=== PATIENT | female | born 1965 | race Caucasian/White ===

== ENCOUNTER 2019-11-06 12:57 | Outpatient (CLI) | payer BC, SELFPAY ==
--- NOTE | ~2019-11-06 | MM_ITS ---
EXAMINATION: MM screening kadie BI w stephanie HISTORY: Screening TECHNIQUE: Craniocaudal and mediolateral oblique 3-D tomosynthesis images were obtained and synthetic 2-D images were generated. CAD analysis was submitted and interpreted. COMPARISON: Comparison to multiple prior studies sequentially, with oldest reviewed study dated 03/17. BREAST PARENCHYMAL COMPOSITION: There are scattered areas of fibroglandular density. FINDINGS: There is no evidence of suspicious mass, calcification, or architectural distortion to sugg est malignancy in either breast. There has been no suspicious interval change. IMPRESSION: 1. No mammographic evidence of malignancy. 2. Recommend routine screening mammography in one year. BI-RADS Category 1: Negative Reviewed, dictated and finalized at location A.
== END 2019-11-06 12:58 | disposition home or self-care (01) ==
LOC: CHSIMG 13:02
PROVIDERS: PCP Family Medicine; Visit Provider Obstetrics & Gynecology
DX: Z12.31 Encounter for screening mammogram for malignant neoplasm of breast (principal)
CPT/HCPCS: 77063; 77067

== ENCOUNTER 2020-11-09 14:44 | Outpatient (CLI) | payer OTHER, SELFPAY ==
--- NOTE | ~2020-11-09 | MM_ITS ---
EXAMINATION: MM screening kadie BI w stephanie HISTORY: Screening mammogram TECHNIQUE: Craniocaudal and mediolateral oblique 3-D tomosynthesis images were obtained and synthetic 2-D images were generated. CAD analysis was submitted and interpreted. COMPARISON: 11/02/2019, 10/09/2018, 10/08/2017 bilateral digital screening mammogram examinations BREAST PARENCHYMAL COMPOSITION: There are scattered areas of fibroglandular density. FINDINGS: There is no evidence of suspicious mass, calcification, or architectural distortion to sugg est malignancy in either breast. There has been no suspicious interval change. IMPRESSION: 1. No mammographic evidence of malignancy. 2. Recommend routine screening mammography in one year. BI-RADS Category 1: Negative Reviewed, dictated and finalized at location A.
== END 2020-11-09 14:45 | disposition home or self-care (01) ==
LOC: CHSIMG 14:47
PROVIDERS: PCP Family Medicine; Visit Provider Obstetrics & Gynecology
DX: Z12.31 Encounter for screening mammogram for malignant neoplasm of breast (principal)
CPT/HCPCS: 77063; 77067

== ENCOUNTER 2021-12-22 14:23 | Outpatient (CLI) | payer OTHER, SELFPAY ==
--- NOTE | ~2021-12-22 | MM_ITS ---
EXAMINATION: MM screening kadie BI w stephanie HISTORY: Screening mammogram TECHNIQUE: Craniocaudal and mediolateral oblique 3-D tomosynthesis images were obtained and synthetic 2-D images were generated. CAD analysis was submitted and interpreted. COMPARISON: 11/09/2020, 11/02/2019, 10/09/2018 lateral screening mammogram examinations BREAST PARENCHYMAL COMPOSITION: There are scattered areas of fibroglandular density. FINDINGS: There is no evidence of suspicious mass, calcification, or architectural distortion to sugg est malignancy in either breast. There has been no suspicious interval change. IMPRESSION: 1. No mammographic evidence of malignancy. 2. Recommend routine screening mammography in one year. BI-RADS Category 1: Negative Reviewed, dictated and finalized at location A.
== END 2021-12-22 14:24 | disposition home or self-care (01) ==
LOC: CHSIMG 14:24
PROVIDERS: Visit Provider Obstetrics & Gynecology
DX: Z12.31 Encounter for screening mammogram for malignant neoplasm of breast (principal)
CPT/HCPCS: 77063; 77067

== ENCOUNTER 2022-12-28 14:05 | Outpatient (CLI) | payer OTHER, SELFPAY ==
--- NOTE | ~2022-12-28 | MM_ITS ---
EXAMINATION: MM screening kadie BI w stephanie HISTORY: Screening mammogram TECHNIQUE: Craniocaudal and mediolateral oblique 3-D tomosynthesis images were obtained and synthetic 2-D images were generated. CAD analysis was submitted and interpreted. COMPARISON: 12/22/2021, 11/09/2020, 11/02/2019 bilateral screening mammogram examinations BREAST PARENCHYMAL COMPOSITION: There are scattered areas of fibroglandular density. FINDINGS: There is no evidence of suspicious mass, calcification, or architectural distortion to sugg est malignancy in either breast. There has been no suspicious interval change. IMPRESSION: 1. No mammographic evidence of malignancy. 2. Recommend routine screening mammography in one year. BI-RADS Category 1: Negative Reviewed, dictated and finalized at location A.
== END 2022-12-28 14:06 | disposition home or self-care (01) ==
PROVIDERS: PCP Obstetrics & Gynecology; Visit Provider Obstetrics & Gynecology
DX: Z12.31 Encounter for screening mammogram for malignant neoplasm of breast (principal)
CPT/HCPCS: 77063; 77067

== ENCOUNTER 2023-04-24 12:53 | Emergency (ER) | payer OTHER, SELFPAY ==
[2023-04-24 13:02] VITALS: BP 115/56; PULSE 83; RESP 16; TEMP 36.5; O2SAT 100
--- NOTE | 2023-04-24 13:09 | ED.SKABFB ---
HPI - Skin/Abscess/Foreign Bdy General Chief complaint: Skin/Abscess/Foreign Body Stated complaint: INFECTED FINGER Time Seen by Provider: 04/24/23 13:09 Source: patient Mode of arrival: ambulatory Limitations: no limitations History of Present Illness HPI narrative: 57-year-old female presents with paronychia to left ring finger. Patient reports that symptoms started 2 days ago. Afebrile. Denies biting nails. Patient states she did telehealth visit yesterday it was prescribe cephalexin. Patient states that provider mention that paronychia may be drained. Patient has not started antibiotic, wanted to make sure she did not need any other treatment prior to starting. Range of motion and distal neurovascularly intact. All systems reviewed and negative except as noted above. Related Data Allergies Allergy/AdvReac Type Severity Reaction Status Date / Time grass pollen Allergy Unknown reaction Verified 04/24/23 13:09 mold Allergy Unknown reaction Verified 04/24/23 13:09 poison roz extract Allergy Unknown Skin Verified 04/24/23 13:09 Reaction pollen extracts Allergy Unknown reaction Verified 04/24/23 13:09 Honey Bee Allergy Intermediate SWELLING Uncoded 04/24/23 13:09 AT SITE SUN Allergy Unknown Unknown Uncoded 04/24/23 13:09 Review of Systems Review of Systems: CONSTITUTIONAL: Denies fever, chills, or sweats. EYES: Denies visual changes, redness, or discharge. ENT: Denies rhinorrhea, congestion, sore throat, or otalgia. CARDIOVASCULAR: Denies chest pain, palpitations, or edema. RESPIRATORY: Denies cough or dyspnea. GASTROINTESTINAL: Denies abdominal pain, nausea, vomiting, or diarrhea. GENITOURINARY: Denies dysuria or hematuria. SKIN: Denies rash or itching. Reports redness, swelling and tenderness to distal aspect of left ring finger. MUSCULOSKELETAL: Denies back pain, joint pain, or myalgia. NEUROLOGIC: Denies headache, numbness, or weakness. PSYCHIATRIC: Denies anxiety or depression. All other systems reviewed are negative, except as documented in HPI. [facility] Family History Family History (Updated 02/20/18 @ 14:26 by DOCTOR UNKNOWN) Grandparent Family history of malignant neoplasm of stomach Mother Family history of gynecological problem Family history of malignant neoplasm of breast in first degree relative Father Family history of malignant neoplasm Family history of lymphoma, Onset Age: 57 Other Family history of lung cancer Family history of malignant neoplasm of breast Malignant neoplasm of prostate Social History Social History Smoking status: Never smoker Alcohol intake: current Comments At time of signature, agree with nursing past medical, surgical, social and family history. There is no relevant family history pertinent to the presenting complaint. Exam Narrative: GENERAL: This is a well-nourished, well-developed patient, in no apparent distress. HEAD: normocephalic, atraumatic. EYES: PERRL. Sclera clear/white. Vision is grossly intact. EARS: External ears normal NOSE: External nose normal NECK: Neck supple, non-tender without lymphadenopathy, masses or thyromegaly. CARDIOVASCULAR: Regular rate and rhythm without murmurs, gallops, or rubs. RESPIRATORY: Clear to auscultation. Breath sounds equal bilaterally. No wheezes, rales, or rhonchi. SKIN: warm, Dry, intact with no suspicious lesions or rash, good texture and turgor. Erythema and swelling to lateral aspect of the left ring finger consistent with paronychia. NEURO: awake, alert, and oriented to person, place and time. There were no obvious focal neurologic abnormalities. EXTREMITIES: No joint tenderness, effusion, or edema noted. Course Course Level of Care: Express Care Visit Vital Signs Vital signs: Vital Signs Temperature 36.5 C 04/24/23 13:02 Pulse Rate 83 04/24/23 13:02 Respiratory Rate 16 04/24/23 13:02 Blood Pressure 115/56 L 04/24/23 13:02 Pulse Oximetry 100
--- NOTE | 2023-04-24 13:38 | PC.NURSE ---
I&D COMPLETED PER WAREHOUSE CONSULTANT, BANDAID APPLIED, SPECIMEN SENT TO LAB
== END 2023-04-24 13:30 | disposition home or self-care (01) ==
PROVIDERS: Emergency Provider Nurse Practitioner Family
DX: L03.012 Cellulitis of left finger (principal)
CPT/HCPCS: 10060; 87070; 87075; 87147; 87181; 87186; 87205; 99213; G0463

== ENCOUNTER 2023-11-22 01:02 | Day surgery (SDC) | payer OTHER, SELFPAY ==
[2023-11-08 10:08] VITALS: BMI 22.1
[2023-11-22 07:10] VITALS: BP 107/46; PULSE 79; RESP 16; TEMP 36.1; O2SAT 100
[2023-11-22] MEDS: LACTATED RINGERS 1,000 ML 150 ML IV CONT (07:21)
--- NOTE | 2023-11-22 08:04 | PM.HPGS ---
History of Present Illness History of Present Illness Consent: Risks, benefits, and alternatives have been discussed and questions answered. Patient agrees to proceed with procedure. Chief complaint: Personal Hx. of colon polyps Narrative: Hailey Sharma is a 58 year old female with adenoma colon polyp in 2016 Review of Systems Review of Systems: All systems reviewed & are unremarkable except as noted in HPI and below PMFSH Past Medical History Medical History (Updated 11/22/23 @ 08:04 by Hector Johnson MD) Adenomatous colon polyp Family History Family History Grandparent Family history of malignant neoplasm of stomach Mother Family history of gynecological problem Family history of malignant neoplasm of breast in first degree relative Father Family history of malignant neoplasm Family history of lymphoma, Onset Age: 57 Other Family history of lung cancer Family history of malignant neoplasm of breast Malignant neoplasm of prostate Social History Social History (Updated 07/31/23 @ 13:25 by Naomy Camejo CMA) Smoking status: Never smoker Alcohol intake: current Substance use: never Substance use type: does not use Do You Feel Safe in your Home?: Yes Lack of Transportation: YES Lack of Food: Never True Current Housing: I Have Housing Concerned About Future Housing: No Difficulty Paying Gas/Electric Bills: No Difficulty Paying for Meds: No Currently Unemployed: No Living arrangements: with family Gender identity (if verbalized by the patient): Female Spiritual care concerns: No Agree to blood products: Yes Meds Home Medications and Allergies Home Medications Medication Instructions Recorded Confirmed Type pfjehrsq-bqq-bysin ac 400 1 tablet PO DAILY 07/31/23 11/08/23 History mcg-calcium carb 500 mg-vit K1 20 mcg tablet (Women's 50 Plus Multivitamin) Calcium 600 + D(3) 1 tab-cap PO DAILY 11/08/23 11/08/23 History chlorpheniramine maleate 4 mg 4 mg PO DAILY 11/08/23 11/08/23 History tablet (Allergy (chlorpheniramine)) sodium,potassium,mag sulfates 17.5 See Rx Instructions .Route 11/08/23 Rx gram-3.13 gram-1.6 gram oral soln .COMPLEX #354 mL (Suprep Bowel Prep Kit) Allergies Allergy/AdvReac Type Severity Reaction Status Date / Time grass pollen Allergy Intermediate reaction Verified 11/22/23 07:09 mold Allergy Intermediate reaction Verified 11/22/23 07:09 poison roz extract Allergy Intermediate Skin Verified 11/22/23 07:09 Reaction pollen extracts Allergy Intermediate reaction Verified 11/22/23 07:09 bees Allergy Intermediate Swelling Uncoded 11/22/23 07:09 Honey Bee Allergy Intermediate SWELLING Uncoded 11/22/23 07:09 AT SITE SUN Allergy Intermediate Rash Uncoded 11/22/23 07:09 Vital Signs Vital Signs - 24 hr 11/22/23 07:10 Temperature 97 F L Pulse Rate 79 Respiratory Rate 16 Blood Pressure 107/46 L Pulse Oximetry 100 Oxygen Delivery Room Air Exam Const: General: comfortable and no acute distress HENMT: Face/Nose/Sinus: Normal nares present Eyes: General: appearance normal, both eyes and all related structures Neck: Neck: no JVD Resp: Auscultation: clear to auscultation bilaterally Cardio: Rate: regular rate Rhythm: regular rhythm GI: Inspection: non-distended GI Palp: Yes Soft to palpation Skin: General skin exam: normal color Neuro: General: gait normal Speech: normal speech Extrem: General: normal to inspection Psych: Mental Status: mental status grossly normal Assessment and Plan Assessment and plan (1) Adenomatous colon polyp: Code(s): D12.6 - Benign neoplasm of colon, unspecified Status: Acute Assessment and Plan: colonoscopy
[2023-11-22 08:17] VITALS: BP 80/36; PULSE 61; RESP 20; O2SAT 98
[2023-11-22 08:27] VITALS: BP 86/48; PULSE 65; RESP 18; O2SAT 100
[2023-11-22 08:31] VITALS: BP 82/47
[2023-11-22 08:34] VITALS: BP 101/57; PULSE 70; RESP 24; O2SAT 100
[2023-11-22 08:37] VITALS: BP 112/83; PULSE 73; RESP 18; O2SAT 100
--- NOTE | 2023-11-29 14:45 | WPDANESEPPF ---
Anes - Initial Pre Proc Eval Procedure: Operation Date: 11/22/23 08:30 Proposed Procedures p Colonoscopy - Hector Johnson MD Date/Time: 11/29/23 14:45 Surgeon: Hector Johnson MD Pre Op Diagnosis: Personal Hx. of colon polyps Patient Data Age: 58 Gender: F Height: 1.6 m Weight: 57.4 kg Last Vital Signs Temp 97 F L 11/22/23 07:10 Pulse 73 11/22/23 08:37 Resp 18 11/22/23 08:37 BP 112/83 11/22/23 08:37 Pulse Ox 100 11/22/23 08:37 O2 Del Method Room Air 11/22/23 08:37 Allergies Allergy/AdvReac Type Severity Reaction Status Date / Time grass pollen Allergy Intermediate reaction Verified 11/22/23 07:09 mold Allergy Intermediate reaction Verified 11/22/23 07:09 poison roz extract Allergy Intermediate Skin Verified 11/22/23 07:09 Reaction pollen extracts Allergy Intermediate reaction Verified 11/22/23 07:09 bees Allergy Intermediate Swelling Uncoded 11/22/23 07:09 Honey Bee Allergy Intermediate SWELLING Uncoded 11/22/23 07:09 AT SITE SUN Allergy Intermediate Rash Uncoded 11/22/23 07:09 Home Medications Medication Instructions Recorded Confirmed Type vndpgvls-nwp-kdbdi ac 400 1 tablet PO DAILY 07/31/23 11/08/23 History mcg-calcium carb 500 mg-vit K1 20 mcg tablet (Women's 50 Plus Multivitamin) Calcium 600 + D(3) 1 tab-cap PO DAILY 11/08/23 11/08/23 History chlorpheniramine maleate 4 mg 4 mg PO DAILY 11/08/23 11/08/23 History tablet (Allergy (chlorpheniramine)) sodium,potassium,mag sulfates 17.5 See Rx Instructions .Route 11/08/23 Rx gram-3.13 gram-1.6 gram oral soln .COMPLEX #354 mL (Suprep Bowel Prep Kit) Patient hx anesthesia problems: none Family hx anesthesia problems: none Results Review: All pre-operative results and documents have been reviewed as part of the pre-operative evaluation. [facility] Past Medical History Medical History (Updated 11/22/23 @ 08:04 by Hector Johnson MD) Adenomatous colon polyp Family History Family History Grandparent Family history of malignant neoplasm of stomach Mother Family history of gynecological problem Family history of malignant neoplasm of breast in first degree relative Father Family history of malignant neoplasm Family history of lymphoma, Onset Age: 57 Other Family history of lung cancer Family history of malignant neoplasm of breast Malignant neoplasm of prostate Social History Social History (Updated 07/31/23 @ 13:25 by Naomy Camejo CMA) Smoking status: Never smoker Alcohol intake: current Substance use: never Substance use type: does not use Do You Feel Safe in your Home?: Yes Lack of Transportation: YES Lack of Food: Never True Current Housing: I Have Housing Concerned About Future Housing: No Difficulty Paying Gas/Electric Bills: No Difficulty Paying for Meds: No Currently Unemployed: No Living arrangements: with family Gender identity (if verbalized by the patient): Female Spiritual care concerns: No Agree to blood products: Yes Anes - Eval Final PreProcedure Day of Procedure 11/29/23 14:45 Patient weight: normal Heart: regular rate and rhythm Lungs: clear to auscultation Airway: Mallampati scale class II Neurological: alert and oriented Last oral intake: >/= 8 hours ASA classification: I Emergent: no Anesthetic plan: proceed Anesthesia type and monitoring: general GIVS and standard monitoring Results Review: All pre-operative results and documents have been reviewed as part of the pre-operative evaluation. Informed Consent: The patient's anesthetic plan and its attendant risks and benefits were discussed with the patient/family/POA. Questions were solicited and answers provided to the satisfaction of the patient/family/POA.
== END 2023-11-22 09:00 | disposition home or self-care (01) ==
PROVIDERS: PCP Family Medicine; Visit Provider Internal Medicine Gastroenterology
PROC: 0DJD8ZZ Inspection of Lower Intestinal Tract, Via Natural or Artificial Opening Endoscopic (ICD-10-PCS; CPT 45378; principal; 2023-11-22 08:30)
DX: Z12.11 Encounter for screening for malignant neoplasm of colon (principal); K64.8 Other hemorrhoids; Z86.010 Personal history of colon polyps
CPT/HCPCS: 45378; J2704; J7120

== ENCOUNTER 2023-12-25 13:41 | Outpatient (CLI) | payer OTHER, SELFPAY ==
--- NOTE | ~2023-12-25 | MM_ITS ---
EXAMINATION: MM screening kadie BI w stephanie HISTORY: Screening mammogram, family history of breast cancer in her mother. TECHNIQUE: Craniocaudal and mediolateral oblique 3-D tomosynthesis images were obtained and synthetic 2-D images were generated. CAD analysis was submitted and interpreted. COMPARISON: 12/28/2022, 12/22/2021, 11/09/2020 BREAST PARENCHYMAL COMPOSITION:Not Dense. There are scattered areas of fibroglandular density. FINDINGS: No suspicious mass, calcification, or architectural distortion are identified in either peri ast to suggest malignancy. There has been no suspicious interval change. IMPRESSION: No mammographic evidence of malignancy. Recommend routine screening mammography in one year. BI-RADS Category 1: Negative Reviewed, dictated and finalized at location .
== END 2023-12-25 13:42 | disposition home or self-care (01) ==
PROVIDERS: PCP Family Medicine; Visit Provider Obstetrics & Gynecology
DX: Z12.31 Encounter for screening mammogram for malignant neoplasm of breast (principal)
CPT/HCPCS: 77063; 77067

== ENCOUNTER 2024-06-02 08:48 | Outpatient (CLI) | payer OTHER, SELFPAY ==
--- NOTE | ~2024-06-02 | XR_ITS ---
EXAMINATION: XR mandible min 4V DATE: 06/02/2024 09:15 INDICATION: Right jaw pain. TECHNIQUE: 4 views of the mandible were obtained. COMPARISON: None. FINDINGS: Alignment is normal. No fracture. The temporomandibular joints are normal. IMPRESSION: 1. Normal mandible. Reviewed, dictated and finalized at location A. D COIL WINDER IMPRESSION: 1. Normal mandible.
== END 2024-06-02 08:49 | disposition home or self-care (01) ==
PROVIDERS: PCP Family Medicine; Visit Provider Family Medicine
DX: R68.84 Jaw pain (principal)
CPT/HCPCS: 70110

== ENCOUNTER 2024-08-25 14:05 | Outpatient (CLI) | payer OTHER, SELFPAY ==
--- NOTE | ~2024-08-25 | DEXA_ITS ---
Bone Density Report Name: STEVEN RICARDO Age: 58 Sex: Female Ethnicity: White Date of : 1965 Indication: postmenopausal; screening for osteoporosis; Study: Bone densitometry was performed. Exam Date: August 25, 2024 Accession number: [id number] Bone Density: Region BMD T-score Z-score Classification AP Spine(L1-L4) 0.875 -1.6 -0.2 Osteopenia Femoral Neck (Left) 0.619 -2.1 -0.8 Osteopenia Total Hip (Left) 0.875 -0.6 0.3 Normal Femoral Neck (Right) 0.652 -1.8 -0.5 Osteopenia Total Hip (Right) 0.881 -0.5 0.4 Normal Femoral Neck Mean 0.636 -1.9 -0.7 Osteopenia Total Hip Mean 0.878 -0.5 0.4 Normal World Health Organization criteria for BMD impression classify patients as: Normal (T-score at or above -1.0), Osteopenia (T-score between -1.0 and -2.5), or Osteoporosis (T-score at or below -2.5). 10-year Fracture Risk(1): Major Osteoporotic Fracture 8.8% Hip Fracture 1.2% Reported Risk Factors: [place] (), Neck BMD=0.619, BMI=22.7 (1) FRAX® Version 3.08. Fracture probability calculated for an untreated patient. Fracture probability may be lower if the patient has received treatment. Clinical Information Provided by Patient: Has used the following medications: Vitamin D, Calcium, multi Patient maximum height was 63 Menopause Age: 48 No regular weight bearing exercise Does not regularly consume dairy products Drinks caffeinated beverages Onset of menses at age 14 Number of children 1 Impression: The patient has low bone mass, based on the Left Femoral Neck T- score. Discussion: BONE DENSITY IS LOW AT ONE OR MORE SKELETAL SITES. This patient's lowest T-score is low at one or more skeletal sites. It meets the World Health Organization's (WHO) criteria for “low bone mass” (T-score between -1.0 and -2.5). The patient's 10-year risk of fracture as calculated by FRAX is less than the threshold where pharmacological therapy is recommended by the National Osteoporosis Foundation (NOF). However, all treatment decisions require clinical judgment and consideration of individual patient factors, including patient preferences, comorbidities, previous drug use, risk factors not captured in the FRAX model (e.g., frailty, falls, vitamin D deficiency, increased bone turnover, interval significant decline in bone density) and possible under or overestimation of fracture risk by FRAX. The patient should follow a healthful lifestyle (good nutrition with adequate calcium and vitamin D, and appropriate weight-bearing exercise). Follow-Up: Consider repeating this study in 2 to 3 years to reassess this patient's status, or sooner if there is some new clinical indication. Reported by: KAILA on 08/27/2024 7:31:00 AM. CHER
--- OUTSIDE RECORDS SUMMARY | 2024-08-25 14:21 | XMS_ITS | Clinical Summary ---
Author Organization [address] Address [address] [place] [address] Care Team Providers Care Benefits Advisor Name Role Phone No, Physician Primary Care Provider [phone] Allergies Active Allergy Reactions Criticality Noted Date Comments Bee Venom Protein (Honey Bee) Other (See comments) Low 10/31/2019 Pt states she gets blood poisoning if she gets stung. Poison Chelsea Extract Blisters High 10/31/2019 Medications jbhcsudk-vrr-wrz mallorie fumarate (Multi Vitamin) 9 mg iron/15 mL liquid daily Active calcium carbonate (CALCIUM 500 ORAL) 600 mg 2 (two) times a day Active pyridoxine (VITAMIN B-6) 50 mg tablet Take 50 mg by mouth daily Active zinc-vit C-pyridoxine, vit B6, 12-60-0.5 mg lozenge 50 mg daily Active cyclobenzaprine (FLEXERIL) 10 mg tablet 10 mg 3 (three) times a day Active Active Problems Problem Noted Date Diagnosed Date Varicose veins of bilateral lower extremities wi th pain 03/06/2017 Surgical History Surgery Date Site/Laterality Comments SECTION Medical History Medical History Date Comments Allergic Social History Tobacco Use Types Packs/Day Years Used Date Smoking Tobacco: Never Smokeless Tobacco: Never Personal Safety Answer Date Recorded Getting School Help Needed Not on file 06/29 Comments Unknown Sex and Gender Information Value Date Recorded Sex Assigned at Not on file 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 Gender Identity Female 12/16/2020 8:42 AM CDT Sexual Orientation Straight 12/16/2020 8: 42 AM CDT Obstetrics History Last Filed Vital Signs Vital Sign Reading Time Taken Comments Blood Pressure 122/62 12/16/2020 5:17 PM CDT Pulse 77 12/16/2020 5:17 PM CDT Temperature 36.8 C (98.3 F) 12/16/2020 5:17 PM CDT Respiratory Rate 18 12/16/2020 5:17 PM CDT Oxygen Saturation 98% 12/16/2020 5:17 PM CDT Inhaled Oxygen Concentration - - Weight 61.2 kg (135 lb) 12/16/2020 5:17 PM CDT Height 160 cm (5' 3 ) 12/16/2020 5:17 PM CDT Body Mass Index 23.91 12/16/2020 5:17 PM CDT Plan of Treatment Not on file Insurance [facility] [id number] Care Teams Benefits Advisor Relationship Specialty Start Date End Date No, Physician PCP - General 11/03/19
--- OUTSIDE RECORDS SUMMARY | 2024-08-25 14:21 | XMS_ITS | Referral Summary ---
Author Organization [address] Address [address] [place] [address] Care Team Providers Care Cutter Helper Name Role Phone No, Physician Primary Care Provider Allergies Active Allergy Reactions Criticality Noted Date Comments Bee Venom Protein (Honey Bee) Other (See comments) Low 10/31/2019 Pt states she gets blood poisoning if she gets stung. 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
== END 2024-08-25 14:06 | disposition home or self-care (01) ==
LOC: CHSIMG 14:06
PROVIDERS: PCP Family Medicine; Visit Provider Family Medicine
DX: Z78.0 Asymptomatic menopausal state (principal); M85.89 Other specified disorders of bone density and structure, multiple sites
CPT/HCPCS: 77080

== ENCOUNTER 2025-02-01 13:48 | Outpatient (CLI) | payer OTHER, SELFPAY ==
--- NOTE | ~2025-02-01 | MM_ITS ---
EXAMINATION: MM screening kadie BI w stephanie HISTORY: Screening TECHNIQUE: Craniocaudal and mediolateral oblique 3-D tomosynthesis images were obtained and synthetic 2-D images were generated. CAD analysis was submitted and interpreted. COMPARISON: Comparison to multiple prior studies sequentially, with oldest reviewed study dated , 11/06/2019 BREAST PARENCHYMAL COMPOSITION: There are scattered areas of fibroglandular density. FINDINGS: There is no evidence of suspicious mass, calcification, or architectural distortion to suggest malignancy in either breast. IMPRESSION: 1. No mammographic evidence of malignancy. 2. Recommend routine screening mammography in one year. BI-RADS Category 1: Negative Reviewed, dictated and finalized at location C.
--- OUTSIDE RECORDS SUMMARY | 2025-02-01 15:50 | XMS_ITS | Clinical Summary ---
Author Organization [address] Address [address] [place] [address] Care Team Providers Care Nurse Esthetician Name Role Phone No, Physician Primary Care Provider [phone] Allergies Active Allergy Reactions Criticality Noted Date Comments Bee Venom Protein (Honey Bee) Other (See comments) Low 10/31/2019 Pt states she gets blood poisoning if she gets stung. 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
== END 2025-02-01 13:49 | disposition home or self-care (01) ==
LOC: CHSIMG 13:49
PROVIDERS: PCP Family Medicine; Visit Provider Obstetrics & Gynecology
DX: Z12.31 Encounter for screening mammogram for malignant neoplasm of breast (principal)
CPT/HCPCS: 77063; 77067